=== PATIENT | female | born 1970 | race Native Hawaiian/Other Pacific Islander ===

== ENCOUNTER 2020-05-08 04:01 | Emergency (ER) | payer BC ==
[~2020-05-08] VITALS: Ht 167.6 cm; Wt 68.0 kg
[2020-05-08 05:12] LABS: PLATELET COUNT 477 K/uL (152-353)
[2020-05-08 05:15] LABS: POTASSIUM 3.8 mmol/L (3.6-5.2)
[2020-05-08 05:39] LABS: PARTIAL THROMBOPLASTIN TIME 24.7 SECONDS (24.5-33.6)
[2020-05-08 07:00] VITALS: BP 112/78; TEMP 98.6
== END 2020-05-08 07:00 | disposition home or self-care (01) ==
LOC: ED 04:01
PROVIDERS: Emergency Medicine
DX: J01.80 Other acute sinusitis (principal); R09.82 Postnasal drip; R06.09 Other forms of dyspnea; R42 Dizziness and giddiness
CPT/HCPCS: 36415; 80053; 83880; 84484; 85027; 85610; 85730; 87502; 87651; 96360; 99284; 99285

== ENCOUNTER 2022-03-04 12:25 | Outpatient (CLI) | payer BC | END 2022-03-04 19:45 | disposition home or self-care (01) | LOC: RAD 12:25 | PROVIDERS: ATTEND Nurse Practitioner Family | DX: R00.2 Palpitations (principal) | CPT/HCPCS: 93005; 93225 ==